=== PATIENT | male | born 1940 | race Caucasian/White ===

== ENCOUNTER → 2020-07-28 | Outpatient (CLI) | payer MEDICARE ==
[~2020-07-28] MED LIST: ASPI325; ASPI325 PO; HYDACE10B PO; HYDMOR2 PO; HYDMOR4 PO; MECL25 PO; NAPR500; OXYACE5T; PRED20 PO
== END ==
LOC: LAB SHORT 17:24 → PLD 17:24
DX: R35.0 Frequency of micturition (principal)
CPT/HCPCS: 87086

== ENCOUNTER 2021-02-18 15:52 | Emergency (ER) | payer MEDICARE ==
[~2021-02-18] VITALS: Ht 177.8 cm; Wt 132.9 kg
[~2021-02-18 15:52] MED LIST changes: +FLOMAX0.4 MG PO
[2021-02-21] MEDS ORDERED: TAMSULOSIN HCL0.4 M1 PO (06:40)
[2021-02-21] MEDS ORDERED: CHLO25B PO (06:40)
[2021-02-21] MEDS ORDERED: FINA5 PO (06:40)
[2021-02-21] MEDS ORDERED: LOSA50 PO (06:41)
== END 2021-02-18 22:27 | disposition home or self-care (01) ==
LOC: ER 15:52
DX: T83.83XA Hemorrhage due to genitourinary prosthetic devices, implants and grafts, initial encounter (principal); N40.1 Benign prostatic hyperplasia with lower urinary tract symptoms; R33.8 Other retention of urine; F17.200 Nicotine dependence, unspecified, uncomplicated; Z88.8 Allergy status to other drugs, medicaments and biological substances; Z79.899 Other long term (current) drug therapy
CPT/HCPCS: 51700; 51702; 96374; 96375; 99283-25; J1885; J2270; J2405

== ENCOUNTER 2021-02-26 18:13 | Emergency (ER) | payer MEDICARE ==
[~2021-02-26] VITALS: Ht 177.8 cm; Wt 132.9 kg
[~2021-02-26 18:13] MED LIST changes: +CHLO25B PO; +FINA5 PO; +LOSA50 PO; +TAMSULOSIN HCL0.4 M1 PO
[2021-02-26 21:22] LABS: Source, Urine Catheter
[2021-02-26 21:27] LABS: Bilirubin, Urine Neg (Neg); Blood, Urine 5+ (Neg); Glucose Qualitative, Urine Neg (Neg); Ketones, Urine Neg (Neg); Leukocyte Esterase, Urine 3+ (Neg); Nitrite, Urine Neg (Neg); Protein, Urine 3+ (Neg); Specific Gravity, Urine 1.015 (1.003-1.022); Urobilinogen, Urine NORM (Normal)
[2021-02-26 21:36] LABS: Amorphous Light (0-Heavy); Appearance, Urine Cloudy (Clear); Bacteria Mod /hpf; Color, Urine Brown (P-Yellow); Mucus Light (0-Heavy); Red Blood Cells, Urine TNTC /hpf (0-2); Squamous Epithelial Cells Rare /hpf (Few)
== END 2021-02-26 22:12 | disposition home or self-care (01) ==
LOC: ER 18:13
PROVIDERS: Physician Assistant
DX: T83.098A Other mechanical complication of other urinary catheter, initial encounter (principal); R31.29 Other microscopic hematuria; I10 Essential (primary) hypertension; F17.200 Nicotine dependence, unspecified, uncomplicated; Z79.899 Other long term (current) drug therapy
CPT/HCPCS: 51702; 51798; 81001; 87086; 99283-25

== ENCOUNTER 2023-12-26 11:04 | Emergency (ER) | payer MEDICARE ==
[~2023-12-26] VITALS: Ht 177.8 cm; Wt 113.8 kg
[2023-12-26 11:27] VITALS: BP 169/118
[2023-12-26 11:54] LABS: Source, Urine Foley catheter
[2023-12-26 11:56] LABS: Appearance, Urine Hazy (Clear); Bilirubin, Urine Neg (Neg); Blood, Urine 4+ (Neg); Color, Urine Yellow (P-Yellow); Glucose Qualitative, Urine Neg (Neg); Ketones, Urine Neg (Neg); Leukocyte Esterase, Urine 3+ (Neg); Nitrite, Urine Neg (Neg); Protein, Urine 2+ (Neg); Urobilinogen, Urine NORM (Normal)
[2023-12-26 12:10] LABS: Amorphous Mod (0-Heavy); Bacteria Few /hpf; Squamous Epithelial Cells Rare /hpf (Few)
[2023-12-26 12:11] LABS: Triple Phosphate Crystals Rare /hpf
== END 2023-12-26 12:12 | disposition home or self-care (01) ==
LOC: ER 11:04
PROVIDERS: Physician Assistant
DX: T83.091A Other mechanical complication of indwelling urethral catheter, initial encounter (principal); Z85.46 Personal history of malignant neoplasm of prostate; Z79.899 Other long term (current) drug therapy
CPT/HCPCS: 51702; 81001; 87077; 87086; 87186; 99283-25